=== PATIENT | female | born 1975 | race Caucasian/White ===

== ENCOUNTER 2019-08-06 13:08 | Emergency (ER) | payer OTHER ==
[~2019-08-06] VITALS: Ht 170.2 cm; Wt 59.0 kg
[2019-08-06 13:16] VITALS: BP_SYST 151
--- NOTE | 2019-08-06 13:22 | NUR ---
Patient to placed to H1 to gown for evaluation. Side rails up.
--- NOTE | 2019-08-06 13:25 | NUR ---
ER at bedside examining patient.
[2019-08-06 14:11] VITALS: BP_SYST 151
--- NOTE | 2019-08-06 14:11 | NUR ---
Patient given written and verbal discharge instructions and verbalizes understanding. ER MD discussed with patient the results and treatment provided. Patient in stable condition. ID arm band removed. no Rx of given. Patient educated on pain management and to follow up with PMD. Pain Scale 0 Opportunity for questions provided and answered. Medication side effect fact sheet provided.Pt discharged in police custody.Pt ambulated with steady gait.
== END 2019-08-06 14:11 ==
LOC: SED 13:08
DX: Z02.89 Encounter for other administrative examinations (principal)
CPT/HCPCS: 99283

== ENCOUNTER 2019-08-12 19:51 | Emergency (ER) | payer MEDICAID, OTHER ==
[~2019-08-12] VITALS: Ht 170.2 cm; Wt 61.2 kg
[2019-08-12 19:58] VITALS: BP_SYST 109
[2019-08-12] MEDS ORDERED: CYCLOBENZAPRINE HCL 10 MG TABLET (FLEXERIL) PO ONE (20:30)
[2019-08-12] MEDS ORDERED: IBUPROFEN 600 MG TABLET PO ONE (20:30)
[2019-08-12 21:44] VITALS: BP_SYST 125
== END 2019-08-12 21:44 | disposition home or self-care (01) ==
LOC: SED 19:51
DX: S16.1XXA Strain of muscle, fascia and tendon at neck level, initial encounter (principal); R51 Headache; F17.210 Nicotine dependence, cigarettes, uncomplicated; Z71.6 Tobacco abuse counseling; X58.XXXA Exposure to other specified factors, initial encounter; Y93.89 Activity, other specified; Y92.89 Other specified places as the place of occurrence of the external cause; Y99.8 Other external cause status
CPT/HCPCS: 36415; 71046-TC; 86710; 99284

== ENCOUNTER 2020-01-27 12:07 | Emergency (ER) | payer MEDICAID, SELFPAY ==
[~2020-01-27] VITALS: Ht 170.2 cm; Wt 62.6 kg
[2020-01-27 12:14] VITALS: BP_SYST 123
--- NOTE | 2020-01-27 12:19 | NUR ---
Patient to ER bed 8 to gown for evaluation. Side rails up. Report given to LUISA Stevens.
--- NOTE | 2020-01-27 12:19 | NUR ---
ER Dr. Kahn at bedside examining patient.
--- NOTE | 2020-01-27 12:20 | NUR ---
Patient presented to ER C/O ABDOMINAL PAIN. Patient A&Ox4, ambulatory to ER, afebrile, skin pink and warm, pain 4/10, nausea & bloating with gas present, denies V/D. Patient states she has abdominal pain x3 days.
--- NOTE | 2020-01-27 12:25 | NUR ---
Urine HCG done, results negative
[2020-01-27] MEDS ORDERED: DIPHENOXYLATE HCL/ATROP SULF 2.5 MG TAB PO ONE (12:30)
[2020-01-27] MEDS ORDERED: KETOROLAC TROMETHAMINE 60 MG/2 ML VIAL IM ONE (12:30)
--- NOTE | 2020-01-27 14:00 | NUR ---
Patient given written and verbal discharge instructions and verbalizes understanding. ER MD discussed with patient the results and treatment provided. Patient in stable condition. ID arm band removed. Rx of lomotil,bactrim DS given. Patient educated on pain management and to follow up with PMD. Pain Scale 0/10. Opportunity for questions provided and answered. Medication side effect fact sheet provided.
[2020-01-27 14:01] VITALS: BP_SYST 123
== END 2020-01-27 14:00 | disposition home or self-care (01) ==
LOC: SED 12:07
DX: K52.9 Noninfective gastroenteritis and colitis, unspecified (principal); Z20.828 Contact with and (suspected) exposure to other viral communicable diseases
CPT/HCPCS: 74018; 81025; 96372; 99284; C9803; J1885; U0003

== ENCOUNTER 2021-10-07 02:58 | Emergency (ER) | payer OTHER ==
[~2021-10-07] VITALS: Ht 167.6 cm; Wt 55.8 kg
[2021-10-07 03:10] VITALS: BP_SYST 128
[2021-10-07] MEDS ORDERED: KETOROLAC TROMETHAMINE 60 MG/2 ML VIAL IM ONE (03:15)
--- NOTE | 2021-10-07 05:26 | NUR ---
VANESSA Rain at bedside examining patient.
--- NOTE | 2021-10-07 05:26 | NUR ---
Placed in room 4 . Placed on cardiac catheterization technologist, blood pressure machine and pulse oximeter. To gown for exam. Side rails up.
--- NOTE | 2021-10-07 05:35 | NUR ---
Pt C/O back pain x2 days s/p fall AOX4 VSS NAD at this time pt medicated Raúl continue to monitor
--- NOTE | 2021-10-07 06:52 | NUR ---
pt resting comfortably in bed AOX4 VSS Able to make needs known Will continue to monitor
[2021-10-07] MEDS ORDERED: HYDR-3917 PO (07:06)
--- NOTE | 2021-10-07 07:10 | NUR ---
Gave report to Valeria MORAN
[2021-10-07] MEDS ORDERED: MORPHINE 4 MG INJ. 4 MG/ML VIAL IV ONE (07:15)
[2021-10-07] MEDS ORDERED: CLIN-142 PO (07:33)
--- NOTE | 2021-10-07 07:36 | NUR ---
medicated with morphine for pain, VSS, Dr. Miller at bedside and looked at pts. left hand has complained of sore and possible infection
[2021-10-07 07:50] VITALS: BP_SYST 117
--- NOTE | 2021-10-07 07:50 | NUR ---
Patient given written and verbal discharge instructions and verbalizes understanding. discussed with patient the results and treatment provided. Patient in stable condition. ID arm band removed. Rx of Clindamycin and Commerce given. Patient educated on pain management and to follow up with PMD. Pain Scale 3. Opportunity for questions provided and answered. Medication side effect fact sheet provided.
== END 2021-10-07 07:50 | disposition home or self-care (01) ==
LOC: SED 02:58
DX: S20.212A Contusion of left front wall of thorax, initial encounter (principal); W18.2XXA Fall in (into) shower or empty bathtub, initial encounter; Y93.89 Activity, other specified; Y92.89 Other specified places as the place of occurrence of the external cause; Y99.8 Other external cause status
CPT/HCPCS: 71100; 72072; 72100; 96372; 99284; J1885; J2270